=== PATIENT | female | born 1945 | race Caucasian/White ===

== ENCOUNTER 2020-11-18 13:38 | Emergency (ER) | payer OTHER, MEDICARE ==
[~2020-11-18] VITALS: Ht 152.4 cm; Wt 99.8 kg
[2020-11-18 14:19] LABS: ABSOLUTE NEUTROPHILS 9.6 thou/uL (1.4-8.2); BASOPHILS 0.5 % (0.0-2.0); EOSINOPHILS 0.5 % (0.0-3.0); HEMATOCRIT 38.5 % (37.0-47.0); LYMPHOCYTES 12.6 % (24.0-44.0); MCH 31.2 pg (26.0-34.0); MCHC 33.8 g/dL (28.0-37.0); MCV 92.4 fL (80.0-100.0); MONOCYTES 4.2 % (1.0-8.0); PLATELET COUNT 181 thou/uL (150-400); POLYS 82.2 % (36.0-66.0); RBC 4.16 mil/uL (4.20-5.00); RDW 12.1 % (10.5-14.5); WBC 11.6 thou/uL (4.0-11.0)
[2020-11-18] MEDS ORDERED: ZESTRIL40 MG PO (14:25)
[2020-11-18] MEDS ORDERED: NORVASC5 MG PO (14:26)
[2020-11-18] MEDS ORDERED: HYDROCHLOROTH12.5 M1 PO (14:26)
[2020-11-18] MEDS ORDERED: ASA81BEC PO (14:26)
[2020-11-18 14:33] LABS: CALCIUM 9.3 mg/dL (8.5-10.1); CREATININE 0.8 mg/dL (0.6-1.0)
[2020-11-18 14:39] LABS: ALBUMIN 3.9 g/dL (3.4-5.0); DIRECT BILIRUBIN 0.1 mg/dL (<0.1-0.2); TOTAL BILIRUBIN 0.6 mg/dL (0.2-1.0); TOTAL PROTEIN 7.2 g/dL (6.4-8.2)
[2020-11-18 15:08] LABS: URINE BILIRUBIN NEGATIVE (Negative); URINE BLOOD TRACE (Negative); URINE CLARITY CLEAR; URINE COLOR YELLOW; URINE GLUCOSE-RANDOM* NEGATIVE (Negative); URINE KETONES NEGATIVE (Negative); URINE NITRITE-REFLEX NEGATIVE (Negative); URINE PROTEIN (DIPSTICK) NEGATIVE (Negative); URINE SPECIFIC GRAVITY 1.015 (1.005-1.035); URINE UROBILINOGEN 0.2 E.U./dl (0.2-1.0)
[2020-11-18 15:10] LABS: URINE LEUKOCYTES-REFLEX 2+ (Negative)
--- NOTE | 2020-11-18 15:19 | EKG ---
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
[2020-11-18 15:25] LABS: SQUAMOUS 4-10 Moderate /LPF (0-3); WBC CLUMPS Few (None Seen)
[2020-11-18 15:27] LABS: RENAL EPITHELIAL CELLS 0-3 Few /LPF (None Seen); URINE WBC-REFLEX 6-15 Few /HPF (0-5)
[2020-11-18 15:28] LABS: CASTS None Seen /LPF (None Seen)
[2020-11-18 15:29] LABS: BACTERIA-REFLEX 1-9 Few /HPF (None Seen); CRYSTALS None Seen /LPF (None Seen); URINE RBC None Seen /HPF (0-2)
[2020-11-18] MEDS ORDERED: ONDANSETRON HCL4 M2 PO (16:41)
[2020-11-18] MEDS ORDERED: HYDROCODON-ACE1 EAC7 PO (16:41)
[2020-11-18] MEDS ORDERED: MACROBID 100 M100 M1 PO (16:41)
[2020-11-18 17:09] VITALS: BP 166/79
== END 2020-11-18 17:17 | disposition home or self-care (01) ==
LOC: ER 13:38
PROVIDERS: Nurse Practitioner
DX: R07.89 Other chest pain (principal); R10.13 Epigastric pain; Z79.82 Long term (current) use of aspirin; Z79.899 Other long term (current) drug therapy; Z88.2 Allergy status to sulfonamides; Z88.1 Allergy status to other antibiotic agents